=== PATIENT | female | born 1990 | race Caucasian/White ===

== ENCOUNTER 2021-10-22 06:46 | Inpatient (IN) | payer BC, SELFPAY ==
[2021-10-22] VITALS (37 sets, daily range): BP systolic 100–157; BP diastolic 53–77; PULSE 90–197; TEMP 36.2–36.8; O2SAT 96–99; BMI 39.2
[2021-10-22 07:44] LABS: Absolute Lymphocyte Count 1.76 X10^3/uL (0.83-4.51); Absolute Neutrophil Count 6.7 X10^3/uL (2.0-7.7); Basophil# 0.03 X10^3/uL; Basophil% 0.3 % (0-1); Eosinophil# 0.14 X10^3/uL; Eosinophils% 1.5 % (0-5); Hematocrit 34.4 % (37-47); Hemoglobin 10.8 g/dL (12.0-15.0); Lymphocyte # 1.76 X10^3/ul (0.83-4.51); Lymphocyte % 18.7 % (19-41); Mean Corp Hgb Conc 31.4 g/dL (32-36); Mean Corpuscular Hgb 28.1 pg (27.0-32.0); Mean Corpuscular Volume 89.4 fL (81-99); Mean Platelet Vol. 9.2 fl (6.2-12.0); Monocyte# 0.59 X10^3/uL; Monocyte% 6.3 % (0-10); NRBC Flagged by Analyzer 0 % (0-5); Neutrophil # 6.71 X10^3/uL (2.7-7.7); Neutrophil % 71.4 % (47-70); Platelet Count 186 K/mm3 (150-450); RBC Distribution Width CV 14.1 % (11.6-14.6); RBC Distribution Width SD 45.5 fl (35.1-43.9); Red Blood Count 3.85 M/mm3 (4.2-5.4); White Blood Count 9.4 K/mm3 (4.4-11.0)
[2021-10-22] MEDS: Lactated Ringers 1,000 ML 50 ML IV (08:08)
[2021-10-22] MEDS: Oxytocin 30 units/NS 500 ml 30 UNITS/500 ML IV.SOLN IV (08:09)
[2021-10-22] MEDS: 0.9% Normal Saline Single 100 ML IV.SOLN. INTRA-UTER (08:21)
[2021-10-22] MEDS: CLARIFY ORDER NOTE (08:22)
--- NOTE | 2021-10-22 08:35 | PCM.HP.OB ---
HPI - General General Date of Admission: 10/22/21 HPI Narrative CINDY STORM, is a 31 F who presents at 37w1d for Medically indicated induction of labor due to GDMA2. Maternal Data Information EDILBERTO Calculator Estimated Delivery Date Method Current WG Current Estimate 11/11/21 Manual 37w 1d PFSH [facility] Medical History (Updated 10/22/21 @ 08:42 by Eloisa Goel CNM) Gestational diabetes mellitus (GDM) affecting first Gestational diabetes mellitus (GDM) affecting second Staph skin infection Home Medications PNV no.[id number] [ Gummies] 2 tab PO DAILY 10/22/21 [History Last Taken 10/21/21 20:30 2 gummies] aspirin [Baby Aspirin] 81 mg PO DAILY 10/22/21 [History Last Taken 10/21/21 20:30 1 tab] famotidine [Pepcid] 20 mg PO DAILY PRN 10/22/21 [History Last Taken 10/22/21 05:30 1 tab] insulin NPH isoph U-100 human 70 unit SUBCUT QHS 10/22/21 [History Last Taken 10/21/21 20:30 70 units] metformin 1,000 mg PO DAILY 10/22/21 [History Last Taken 10/21/21 20:30 1 tab] Allergy/AdvReac Type Severity Reaction Status Date / Time No Known Allergies Allergy Verified 10/22/21 07:29 Family History (Updated 10/22/21 @ 07:47 by Eloisa Austin) Father Hypertension Mother Diabetes Surgical History (Updated 10/22/21 @ 07:46 by Eloisa Austin) History of placement of ear tubes Hx of adenoidectomy [place] teeth removed Social History Smoking Status: Never smoker History Elective abortions Hx Para 1 Spontaneous abortions Hx # Term Pregnancies Ectopic pregnancies Hx # Pregnancies Multiple births # of living children NST FHR Rate Baby A Baseline: 150 Variability:: Moderate Accelerations:: 15 x 15 Decelerations:: None FHR Category:: Category I Uterine Activity:: None ROS Constitutional Constitutional: Reports systems reviewed and no addt'l complaints, except as documented; Denies headache(s) Eyes Eyes: Denies acute decrease in peripheral vision, blurry vision or change in vision ENT HEENT: Reports systems reviewed and no addt'l complaints, except as documented Cardiovascular Cardiovascular: Denies chest pain or dizziness Respiratory/Chest Respiratory/Chest: Denies cough, dyspnea, dyspnea on exertion, shortness of breath at rest or shortness of breath with exertion Gastrointestinal Gastrointestinal: Denies abdominal pain, diarrhea, nausea or vomiting Genitourinary Genitourinary: Denies abdominal discomfort or movement Musculoskeletal Musculoskeletal: Denies limited range of motion Integumentary Integumentary: Reports systems reviewed and no addt'l complaints, except as documented Neurologic Neurologic: Reports systems reviewed and no addt'l complaints, except as documented Psychiatric Psychiatric: Reports systems reviewed and no addt'l complaints, except as documented Endocrine Endocrinology: Reports systems reviewed and no addt'l complaints, except as documented Hematologic/Lymphatic Hematologic/Lymphatic: Reports systems reviewed and no addt'l complaints, except as documented Allergic/Immunologic Allergic/Immunologic: Reports systems reviewed and no addt'l complaints, except as documented Vital Signs Vital Signs Vital Signs: 10/22/21 07:30 10/22/21 08:07 Temperature 98.0 F 97.2 F L Temperature Source Temporal Temporal Pulse Rate 98 98 Blood Pressure 125/72 H 118/58 L BP Systolic 125 118 BP Diastolic 72 58 Weight Weight: 228 lb 2.855 oz Body Mass Index (BMI) 39.2 Physical Exam Const alert and oriented x3 General Appearance: cooperative Orientation / Consciousness: awake, oriented to person, oriented to place and oriented to time Exam Limitations: no limitations HEENT normocephalic Head and Scalp: normal to inspection, normocephalic and atraumatic Face and Sinus: normal facial exam Eyes General Eye: normal appearance of both eyes Neck full ROM Chest Chest: symmetrical chest wall rise Resp normal respiratory effort and normal air movement Auscultation: clear to auscultation bilaterally Cardio regular rate, regular rhythm, S1 normal heart sound, S2 normal heart sound, no murmurs, no rub, no gallops and no clicks GI normal to inspection, nondistended, normoactive bowel sounds and non-tender appearance of the vagina normal Bladder / Kidney Exam: no CVA tenderness Manual OB Exam: estimated gestational size appropriate, presentation cephalic, dilated 1cm, effaced 50, station -3 and other Intracervical man placed without difficulty. 30ml NS instilled. Patient tolerated well. Amniotic Fluid: no amniotic fluid noted Back/Spine normal ROM Extremity normal to inspection and full ROM Skin no rashes or lesions noted Neuro oriented x3, CN's II-XII intact bilaterally and moves all extremities Sensorium / Orientation: awake, alert and oriented to person Motor Exam: clonus absent Deep Tendon Reflexes: Rt Patellar (L4): 2+ and Lt Patellar (L4): 2+ Labs Labs Labs: Blood Type Pending Antibody Screen Pending Hct 34.4 % (37-47) L Hgb 10.8 g/dL (12.0-15.0) L RPR nonreactive O positive Rubella Immune HIV negative HBsAG negative GC/CT negative HepC negative Assessment & Plan (1) History of gestational diabetes: (2) GDM, class A2: (3) Encounter for induction of labor: PLAN: 1) Admit to labor and delivery for induction of labor due to GDMA2 2) Routine labs 3) BS per protocol 4) GBS 5) Continuous EFM 6) Man bulb for cervical ripening and Pitocin per policy 7) Pain management upon request 8) collaborative physician and referral of management due to GDMA2
[2021-10-22 09:01] LABS: Bedside Glucose 154 mg/dL (74-106)
[2021-10-22] MEDS: 0.9% Saline Lock 10 ML Syringe IV ×2 (09:14→14:25)
[2021-10-22] MEDS: Dext 5%-0.45% NS 1,000 ML 125 ML IV (09:50)
[2021-10-22 10:16] LABS: Bedside Glucose 126 mg/dL (74-106)
[2021-10-22] MEDS: Lactated Ringers 500 ML 999 ML IV (11:03)
[2021-10-22] MEDS: fentaNYL-bupivacaine (epidural) 100 ML BAG EPIDURAL ×2 (11:49→16:03)
[2021-10-22 12:06] LABS: Bedside Glucose 117 mg/dL (74-106)
[2021-10-22 12:06] LABS: Bedside Glucose 113 mg/dL (74-106)
[2021-10-22 13:00] LABS: Bedside Glucose 94 mg/dL (74-106)
--- NOTE | 2021-10-22 13:06 | PCM.PN.BLA ---
Progress Note pt seen at bedside, VE performed on exam membranes ruptured - large amt clear fluid. 4-5/70-80/-2.
[2021-10-22 14:11] LABS: Bedside Glucose 69 mg/dL (74-106)
[2021-10-22 16:31] LABS: Bedside Glucose 79 mg/dL (74-106)
[2021-10-22 17:25] LABS: Bedside Glucose 76 mg/dL (74-106)
[2021-10-22] MEDS: Lactated Ringers 1,000 ML 200 ML IV (17:36)
[2021-10-22] MEDS: Oxytocin 30 units/NS 500 ml 30 UNITS/500 ML IV.SOLN 334 UNITS IV (17:45)
--- NOTE | 2021-10-22 17:56 | EX.PCM.OBRPT ---
Assessment & Plan (1) GDM, class A2: (2) 37 weeks gestation of : Maternal Data Information EDILBERTO Calculator Estimated Delivery Date Method Current WG Current Estimate 11/11/21 Manual 37w 1d Vaginal Delivery Maternal Presentation Maternal Presentation: Medically Indicated Induction Type of Induction: Dwyer Bulb and Amniotomy Medical Reason for Induction: - (GDMA2- poorly controlled ) Operative Information Date of Procedure: 10/22/21 Pre-Operative Diagnosis: 37 weeks gestation, GDMA2 poorly controlled Post-Operative Diagnosis: same, live female Surgery / Procedure Performed: Spontaneous Vaginal Delivery Type of Anesthesia: Epidural Drain: Dwyer to straight drain Estimated Blood Loss: 250 Time of Delivery: 17:43 Findings Description of Procedure: Patient progressed to fully dilated. With 1 push the 's head was delivered followed by the rest the infant's body. There was no complication with delivery. The infant was placed on the mother's chest for immediate skin to skin. Infant was vigorous at time of delivery. Delayed cord clamping was performed. Second-degree perineal laceration was appreciated. This was repaired using 2-0 Vicryl and 3-0 repeat on a single needle. Placenta was then delivered without complication spontaneously and intact. Presentation: Vertex Amniotic Membrane Rupture Type: Artificial Amniotic Fluid Description: Clear Placental Delivery Description: Spontaneous Placenta Disposition: [facility] Specimen(s) Removed: Placenta Cord Vessel Description: 3 Vessels Cord Entanglement: None A Gender: Female (1 minute): 9 (5 minute): 10 Delayed Cord Clamping: Yes Post Vaginal Delivery Medications Given After Delivery: IV Pitocin Episiotomy Description: None Laceration: Perineal Extension/lac and 2nd degree Complication Complications: None
[2021-10-22 19:16] LABS: Bedside Glucose 85 mg/dL (74-106)
[2021-10-23 00:55] VITALS: BP 111/59; PULSE 102; RESP 18; TEMP 36.4; O2SAT 98
[2021-10-23 04:00] VITALS: BP 105/65; PULSE 92; RESP 16; TEMP 36.8; O2SAT 97
[2021-10-23 06:21] LABS: Bedside Glucose 97 mg/dL (74-106)
[2021-10-23 07:36] LABS: Bedside Glucose 78 mg/dL (74-106)
[2021-10-23 07:36] LABS: Bedside Glucose 62 mg/dL (74-106)
[2021-10-23 08:20] VITALS: BP 108/63; PULSE 83; RESP 16; TEMP 36.3
--- NOTE | 2021-10-23 09:32 | PCM.PN.OB ---
Subjective Subjective Denies complaints Objective Data Objective Data Vital Signs: Vital Signs Temp Pulse Resp BP Pulse Ox 97.4 F L 83 16 108/63 97 10/23/21 08:20 10/23/21 08:20 10/23/21 08:20 10/23/21 08:20 10/23/21 04:00 Oxygen Delivery Method Room Air Weight: 228 lb 2.855 oz Body Mass Index (BMI) 39.2 Intake & Output: Intake and Output for Last 24 Hours 10/21/21 10/22/21 10/23/21 23:59 23:59 23:59 Intake Total 3449.68 / 3449.68 Output Total 1850 / 1851 Balance 1599.68 / 1598.68 -1 Lab / Micro Data Result Diagrams: 10/22/21 07:20 Labs: Laboratory Results - last 24 hr 10/22/21 07:20: Blood Type O POSITIVE, Antibody Screen NEGATIVE 10/22/21 09:45: POC Glucose 126 H 10/22/21 10:49: POC Glucose 117 H 10/22/21 11:53: POC Glucose 113 H 10/22/21 12:57: POC Glucose 94 10/22/21 14:03: POC Glucose 69 L 10/22/21 15:04: POC Glucose 62 L 10/22/21 15:19: POC Glucose 78 10/22/21 16:11: POC Glucose 79 10/22/21 17:16: POC Glucose 76 10/22/21 18:54: POC Glucose 85 10/23/21 06:08: POC Glucose 97 Micro: Microbiology 10/22/21 07:20 Nasal Secretion SARS-CoV-2 Antigen (Rapid) - Final Physical Exam Const alert, oriented x3 and no apparent distress HEENT normocephalic GI soft to palpation, non-tender and non-distended GI Narrative: fundus firm, mid & below umbilicus Extremity normal to inspection and no calf tenderness Assessment & Plan (1) GDM, class A2: PLAN: FBS this am 97 Plan for PP 2hr GTT (2) 37 weeks gestation of : PLAN: Routine PP care
[2021-10-23 12:09] VITALS: BP 110/65; PULSE 80; RESP 16; TEMP 36.5
[2021-10-23 17:00] VITALS: TEMP 36.6
[2021-10-23 20:25] VITALS: BP 108/65; PULSE 101; RESP 16; TEMP 36.9; O2SAT 96
[2021-10-24 02:49] VITALS: BP 121/67; PULSE 86; RESP 16; TEMP 36.8; O2SAT 97
--- NOTE | 2021-10-24 07:30 | NURSING ---
report given to Gurpreet Woody RN who is assuming care of pt at this time
--- NOTE | 2021-10-24 07:48 | PCM.PN.OB ---
Subjective Subjective Pain well controlled. Average lochia. Objective Data Objective Data Vital Signs: Vital Signs Temp Pulse Resp BP Pulse Ox 98.3 F 86 16 121/67 H 97 10/24/21 02:49 10/24/21 02:49 10/24/21 02:49 10/24/21 02:49 10/24/21 02:49 Oxygen Delivery Method Room Air Weight: 103.5 kg Body Mass Index (BMI) 39.2 Intake & Output: Intake and Output for Last 24 Hours 10/22/21 10/23/21 10/24/21 23:59 23:59 23:59 Intake Total 3449.68 / 3449.68 Output Total 1850 / 1851 Balance 1599.68 / 1598.68 -1 Lab / Micro Data Result Diagrams: 10/22/21 07:20 Micro: Microbiology 10/22/21 07:20 Nasal Secretion SARS-CoV-2 Antigen (Rapid) - Final Physical Exam Const alert and no apparent distress Narrative: Fundus firm, below umbilicus. Assessment & Plan (1) (spontaneous vaginal delivery): PLAN: day #2 status post vaginal delivery. Breast-feeding is going well. Patient has had to supplement some due to hypoglycemia of the infant. Patient and are doing well. Desires discharge home today.
--- NOTE | 2021-10-24 07:49 | PCM.DC.SUM ---
Providers Date of Admission: 10/22/21 Primary Care Physician: Bianca Primary Care Phys Reason For Visit: VAGINAL Diagnosis Discharge Diagnosis (1) (spontaneous vaginal delivery): Status: Acute Code(s): O80 - Encounter for full-term uncomplicated delivery Medications at Discharge Home Medications Gummies 2 tab PO DAILY 10/22/21 ibuprofen 600 mg PO Q6H PRN 10 Days #30 tablet 10/24/21 Hospital Course Operations None Procedures None Summary of Care Provided Hospital Course: Patient was admitted on 10/22/2021 at 37+ weeks gestation for poorly controlled gestational diabetes class A2. Induction of labor was recommended due 2 for glucose regulation. Patient underwent an induction of labor and had a spontaneous vaginal delivery on 10/22/2021 without complication. By day #2 she was ambulating, urinating tolerating regular diet and the was breast-feeding. Patient desired discharge home. Weight / BMI Weight Weight: 103.5 kg Body Mass Index (BMI) 39.2 ABG / Lab / Microbiology Data Result Diagrams: 10/22/21 07:20 Microbiology: Microbiology 10/22/21 07:20 Nasal Secretion SARS-CoV-2 Antigen (Rapid) - Final D/C Instructions May resume sexual activity in: 6-8 weeks and - (Nothing in your vagina for 6 weeks. No vaginal or anal intercourse for 6-8 weeks) Cleanse incision/area with: Soap & Water and - (Your incisions have skin glue, it can get wet, leave the glue on until it falls off. ) Please Follow Up With: Yulia Borden MD When: With my office in 1-2 and 6 weeks or as needed. [phone] Meaningful Use Info Meaningful Use Diagnoses (Choose all that apply): None applicable Discharge Plan Admission Admit Date/Time: 10/22/21 06:46 Primary Reason for Your Visit: Induction of labor and vaginal delivery Attending Provider: Kelly Cotton Primary Care Provider: Care Physician,Bianca Primary Discharge Orders/Prescriptions Prescriptions: New ibuprofen [ibuprofen] 600 MG tablet 600 mg PO Q6H PRN (Reason: Pain) 10 Days Qty: 30 RF: 1 Continued Gummies 400 mcg-35 mg- 25 mg-5 mg Tablet,Chewable 2 tab PO DAILY RF: 0 Discontinued famotidine [Pepcid] 20 mg Tablet 20 mg PO DAILY PRN (Reason: Indigestion) RF: 0 aspirin [Baby Aspirin] 81 mg Tablet,Chewable 81 mg PO DAILY RF: 0 insulin NPH isoph U-100 human 100 unit/mL (3 mL) Insulin Pen 70 unit SUBCUT QHS RF: 0 metformin 1,000 mg Tablet Extended Release 24hr 1,000 mg PO DAILY RF: 0 Referrals / Follow Up: Care Physician,No Primary [Primary Care Provider] - Disposition Disposition (needs filled in before D/C Order can be placed): Home, Self Care
[2021-10-24 08:25] VITALS: BP 115/73; PULSE 91; RESP 18; TEMP 36.3
[2021-10-24 11:13] VITALS: BP 113/78; PULSE 111; RESP 17; TEMP 36.2; O2SAT 95
== END 2021-10-24 11:30 | disposition home or self-care (01) | DRG 807 ==
PROVIDERS: Obstetrics & Gynecology; Admitting Provider Obstetrics & Gynecology; Visit Provider Obstetrics & Gynecology
DX: O24.425 Gestational diabetes mellitus in childbirth, controlled by oral hypoglycemic drugs (principal); Z37.0 Single live birth; O70.1 Second degree perineal laceration during delivery; Z79.4 Long term (current) use of insulin; Z3A.37 37 weeks gestation of pregnancy
CPT/HCPCS: 59025; 59050; 82962; 85025; 86850; 86900; 86901; 87426; 99218; J7120; A4216; G0378; J7799